=== PATIENT | female | born 1955 | race Caucasian/White ===

== ENCOUNTER 2017-10-19 19:57 | Emergency (ER) | payer OTHER ==
[2017-10-19 20:32] VITALS: BP 105/55
[2017-10-19] MEDS ORDERED: Acetaminophen TAB* 325 MG PO ONE (21:18)
--- NOTE | 2017-10-19 21:23 | UC ---
Complaint Female HPI - HPI Summary HPI Summary: has had dysuria for 3-4 days, saw PCP yesterday and started nitrofurontoin. by evening she had N/V and this am started with diarrhea and now has fever. has taken no tylenol or ibuprofen today. states UTI symps seem a bit better. no back or abd pain - History Of Current Complaint Chief Complaint: UCGeneralIllness Stated Complaint: CHILLS HOT VOMITING FREQ URINATION Time Seen by Provider: 10/19/17 21:07 Hx Obtained From: Patient, Family/Comptroller Onset/Duration: Gradual Onset Timing: Constant Severity Initially: Mild Severity Currently: Mild Pain Intensity: 0 Aggravating Factor(s): Nothing Associated Signs And Symptoms: Positive: Fever, Nausea, Vomiting(# Of Episodes = ) - x 1 last pm. Negative: Back Pain - Allergies/Home Medications Allergies/Adverse Reactions: Allergies Allergy/AdvReac Type Severity Reaction Status Date / Time Penicillins Allergy Unknown Verified 10/19/17 20:34 Reaction Details Home Medications: Home Medications Phenazopyridine 100 mg tab 100 mg PO Q8HR PRN 10/19/17 [History Confirmed ] PMH/Surg Hx/FS Hx/Imm Hx Previously Healthy: Yes - Surgical History Surgical History: Yes Surgery Procedure, Year, and Place: 3 C SECTIONS, 1977, 1979, 1980, [facility] [place]. 1970, APPENDECTOMY, [facility] [place]. 1980 & 1987 DC X2 [facility] [place]. 2013 EXCISION MELANOMA MID BACK [facility] [place] - Family History Known Family History: Positive: Hypertension - Social History Occupation: Employed Full-time Lives: With Family Alcohol Use: Rare Alcohol Amount: 1-3 DRINKS EVERY 3 MONTHS Substance Use Type: None Smoking Status (MU): Heavy Every Day Tobacco Smoker Type: Cigarettes Amount Used/How Often: 1PPD 30 YRS Have You Smoked in the Last Year: Yes Household Exposure Type: Cigarettes Cessation Counseling: Patient Advised to Stop Review of Systems Constitutional: Fever, Chills - today Skin: Negative Respiratory: Negative Cardiovascular: Negative Gastrointestinal: Diarrhea, Nausea Genitourinary: Frequency, Urgency Musculoskeletal: Negative Neurological: Negative Psychological: Negative All Other Systems Reviewed And Are Negative: Yes Physical Exam Triage Information Reviewed: Yes Appearance: Well-Appearing, No Pain Distress, Well-Nourished Vital Signs: Initial Vital Signs Temp 99.4 F 10/19/17 20:28 Pulse 109 10/19/17 20:28 Resp 16 10/19/17 20:28 BP 105/55 10/19/17 20:28 Pulse Ox 100 10/19/17 20:28 Vital Signs Reviewed: Yes ENT Exam: Normal Neck exam: Normal Neck: Positive: Supple, Nontender Respiratory Exam: Normal Respiratory: Positive: Lungs clear Cardiovascular Exam: Normal Cardiovascular: Positive: RRR, Pulses Normal, Brisk Capillary Refill Abdominal Exam: Normal Abdomen Description: Positive: Nontender, No Organomegaly, Soft. Negative: CVA Tenderness (R), CVA Tenderness (L) Bowel Sounds: Positive: Present Musculoskeletal Exam: Normal Neurological Exam: Normal Psychological Exam: Normal Skin Exam: Normal Re-Evaluation - Re-Evaluation First Eval Re-Evaluation Time: 21:58 Complaint Female Dx - Course Course Of Treatment: case discussed with Dr. Paiz. Patient declines ER at this time but agrees to take zofran and change macrodantin to cipro. She and also agree to report to ER if symptoms worsen in any way - Differential Dx/Diagnosis Differential Diagnosis/HQI/PQRI: Urinary Tract Infection, Other - kidney infection, gastroenteritis Provider Diagnoses: UTI\. viral gastroenteritis Discharge - Sign-Out/Discharge Documenting (check all that apply): Discharge/Admit/Transfer - Discharge Plan Condition: Stable Disposition: HOME Prescriptions: Ciprofloxacin TAB* [Cipro 500 MG TAB*] 500 mg PO BID #10 tab Patient Education Materials: Urinary Tract Infection in Women (DC), Gastroenteritis (ED) Referrals: Felipe Joy MD [Primary Care Provider] - 2 Days (for recheck) Additional Instructions: Rest, drink plenty of fluids STOP macrodantin antibiotic you were given START cipro as directed use Tylenol or ibuprofen for fevers report to ER if your symptoms worsen at any time. - Billing Disposition and Condition Condition: STABLE Disposition: HOME
[2017-10-19] MEDS ORDERED: Ondansetron ODT TAB* 4 MG PO ONE (22:08)
[2017-10-19] MEDS ORDERED: Ciprofloxacin TAB* 500 MG PO ONE (22:09)
== END 2017-10-19 22:20 | disposition home or self-care (01) ==
LOC: UCEAST 19:57
DX: N39.0 Urinary tract infection, site not specified (principal); A08.4 Viral intestinal infection, unspecified; Z88.0 Allergy status to penicillin; F17.210 Nicotine dependence, cigarettes, uncomplicated
CPT/HCPCS: 81003; 99212; A9270-GY; G0463